=== PATIENT | female | born 1945 | race Two or more races ===

== ENCOUNTER 2021-02-16 15:47 | Inpatient (IN) | payer OTHER, MEDICAID ==
[~2021-02-16] VITALS: Ht 152.4 cm; Wt 49.7 kg
[2021-02-16 16:50] LABS: Basophils # (auto) 0 10 ^3/uL (0-0.2); Basophils % (auto) 0.5 % (0.0-2.0); Eosinophils # (auto) 0 10 ^3/uL (0-0.8); Hematocrit 44.8 % (36.0-46.0); Lymphocytes # (auto) 2.2 10 ^3/uL (0.4-5.4); Lymphocytes % (auto) 24.8 % (10.0-50.0); Mean Corpuscular Hemoglobin 30.1 pg (28.0-32.0); Mean Corpuscular Hgb Conc. 33.5 g/dL (32.0-36.0); Mean Corpuscular Volume 89.9 fL (80.0-100.0); Monocytes # (auto) 0.7 10 ^3/uL (0-1.3); Monocytes % (auto) 7.5 % (0.0-12.0); Neutrophils # (auto) 5.9 10 ^3/uL (1.6-8.6); Neutrophils % (auto) 67.2 % (37.0-80.0); Nucleated Red Blood Cells % 0.1 %; Red Blood Cells 4.98 10^6/uL (4.0-5.20); Red Cell Distribution Width 13.9 % (11.8-14.3); White Blood Cell 8.8 10^3/uL (4.4-10.8)
[2021-02-16 18:12] LABS: Alanine Aminotransferase 33 U/L (13-56); Albumin 3.2 g/dL (3.4-5.0); Anion Gap 13 (5-15); Aspartate Aminotransferase 31 U/L (15-37); BUN/Creatinine Ratio 23.1; Blood Urea Nitrogen 24 mg/dL (7-18); Calcium 8.8 mg/dL (8.5-10.1); Carbon Dioxide 19 mmol/L (21-32); Chloride 107 mmol/L (98-107); GFR African American 66 mL/min; GFR Non-African American 55 mL/min; Glucose 232 mg/dL (74-106); Potassium 4.2 mmol/L (3.5-5.1); Sodium 139 mmol/L (136-145)
[2021-02-16 18:17] LABS: Alkaline Phosphatase 76 U/L (45-117); Bilirubin, Total 0.4 mg/dL (0.2-1.0); Total Protein 8.1 g/dL (6.4-8.2)
[2021-02-16] MEDS ORDERED: NITROGLYCERIN 0.4 MG SL TAB SL PRN (21:00)
[2021-02-16] MEDS ORDERED: ONDANSETRON HCL 4 MG/2 ML VIAL IV PRN (21:00)
[2021-02-16] MEDS ORDERED: ACETAMINOPHEN 325 MG TAB PO PRN (21:00)
[2021-02-16] MEDS ORDERED: ACETAMINOPHEN 500 MG TAB PO PRN (21:00)
[2021-02-16] MEDS ORDERED: MORPHINE SULFATE INJECTION 2 MG/ML SYRG IV PRN (21:00)
[2021-02-16] MEDS: ALBUTEROL SULF HFA 90MCG INH 200DOSE IN PRN (22:30)
[2021-02-17 02:47] LABS: Urine Bacteria NONE SEEN /hpf (None Seen); Urine Blood Negative /uL (Negative); Urine Mucus FEW (None Seen); Urine Specific Gravity 1.028 (1.001-1.035); Urine WBC 2 /hpf (0 - 5); Urine WBC Clumps PRESENT /hpf (None Seen)
[2021-02-17 03:20] VITALS: BP 124/69
[2021-02-17 05:42] LABS: Basophils # (auto) 0 10 ^3/uL (0-0.2); Basophils % (auto) 0.2 % (0.0-2.0); Eosinophils # (auto) 0 10 ^3/uL (0-0.8); Hematocrit 45.3 % (36.0-46.0); Hemoglobin 15.3 g/dL (12.2-16.2); Lymphocytes % (auto) 25.3 % (10.0-50.0); Mean Corpuscular Hemoglobin 30.7 pg (28.0-32.0); Mean Corpuscular Hgb Conc. 33.8 g/dL (32.0-36.0); Mean Corpuscular Volume 90.9 fL (80.0-100.0); Monocytes # (auto) 0.8 10 ^3/uL (0-1.3); Monocytes % (auto) 10.5 % (0.0-12.0); Neutrophils # (auto) 5.1 10 ^3/uL (1.6-8.6); Nucleated Red Blood Cells % 0.1 %; Red Blood Cells 4.98 10^6/uL (4.0-5.20); Red Cell Distribution Width 13.6 % (11.8-14.3)
[2021-02-17 05:50] LABS: Potassium 4.3 mmol/L (3.5-5.1)
[2021-02-17] MEDS: ALBUTEROL SULF HFA 90MCG INH 200DOSE IN PRN ×2 (06:05→19:37)
[2021-02-17 06:16] LABS: Albumin 3.4 g/dL (3.4-5.0); BUN/Creatinine Ratio 26.7; Bilirubin, Total 0.4 mg/dL (0.2-1.0); Calcium 9.1 mg/dL (8.5-10.1); Total Protein 8.2 g/dL (6.4-8.2)
[2021-02-17] MEDS: cefTRIAXone 1GM/50ML D5W 50 ML IV SCH (09:55)
[2021-02-17] MEDS ORDERED: PANTOPRAZOLE 40 MG TAB PO SCH (10:00)
[2021-02-17] MEDS: CHOLECALCIFEROL (VITD3) 2,000 UNIT CAP/TAB PO SCH (10:17)
[2021-02-17] MEDS: ENOXAPARIN SOD 40 MG/0.4 ML SYRINGE SC SCH (10:17)
[2021-02-17] MEDS: DexAMETHasone SOD PHOS 10MG/1ML VIAL INJ IV SCH (10:17)
[2021-02-17] MEDS: ZINC SULFATE 220mg CAP or TAB PO SCH (10:17)
[2021-02-17] MEDS: ASCORBIC ACID 1,000 MG TAB PO SCH (10:17)
[2021-02-17] MEDS: AZITHROMYCIN 500MG/ 250ML 250 ML IV SCH (12:03)
[2021-02-18] MEDS: cefTRIAXone 1GM/50ML D5W 50 ML IV SCH (08:53)
[2021-02-18] MEDS: ZINC SULFATE 220mg CAP or TAB PO SCH (10:37)
[2021-02-18] MEDS: AZITHROMYCIN 500MG/ 250ML 250 ML IV SCH (10:37)
[2021-02-18] MEDS: CHOLECALCIFEROL (VITD3) 2,000 UNIT CAP/TAB PO SCH (10:38)
[2021-02-18] MEDS: ENOXAPARIN SOD 40 MG/0.4 ML SYRINGE SC SCH (10:38)
[2021-02-18] MEDS: ASCORBIC ACID 1,000 MG TAB PO SCH (10:38)
[2021-02-18] MEDS: DexAMETHasone SOD PHOS 10MG/1ML VIAL INJ IV SCH (10:38)
[2021-02-18 10:51] LABS: Potassium 4.7 mmol/L (3.5-5.1)
[2021-02-18 10:56] LABS: BUN/Creatinine Ratio 30.7; Calcium 9.3 mg/dL (8.5-10.1)
[2021-02-18] MEDS: SODIUM BICARBONATE 50ML VIAL 150 ML in D5W 5% 1,000 ML IV SCH (14:08)
[2021-02-18] MEDS: InsuLIN REG 1unit/0.01ml Soln (100units/ml) SC SCH ×2 (17:21→21:45)
[2021-02-18] MEDS: ACCU-CHEK COMFORT CURVE STRIP VI SCH ×2 (17:22→21:45)
[2021-02-18 22:00] VITALS: BP 113/60
[2021-02-18] MEDS ORDERED: AMIODARONE HCL 150 MG in D5W 5% 100 ML IV ONE (23:30)
[2021-02-18] MEDS ORDERED: AMIODARONE 450mg/250ml AE 250 ML IV SCH (23:45)
[2021-02-18] MEDS ORDERED: AMIODARONE HCL (50 MG/ ML) 3 ML VIAL IV ONE (23:57)
[2021-02-19 01:00] VITALS: BP 113/60
[2021-02-19] MEDS ORDERED: SODIUM BICARBONATE 8.4 % INJ 50ML VIAL IV ONE ×3 (01:28→01:37)
[2021-02-19] MEDS: SODIUM BICARBONATE 50ML VIAL 150 ML in D5W 5% 1,000 ML IV SCH (02:01)
[2021-02-19 05:00] VITALS: BP 128/92
[2021-02-19] MEDS ORDERED: CANA100T PO (05:14)
[2021-02-19] MEDS ORDERED: METF-370 PO (05:14)
[2021-02-19] MEDS ORDERED: GLIP10TA9 PO (05:14)
[2021-02-19] MEDS ORDERED: LOSA-39 PO (05:14)
[2021-02-19] MEDS: AMIODARONE 450mg/250ml AE 250 ML IV SCH ×2 (06:43→11:48)
[2021-02-19 06:47] LABS: Calcium 9.4 mg/dL (8.5-10.1); Potassium 3.8 mmol/L (3.5-5.1)
[2021-02-19] MEDS: ACCU-CHEK COMFORT CURVE STRIP VI SCH ×4 (07:05→22:00)
[2021-02-19] MEDS: InsuLIN REG 1unit/0.01ml Soln (100units/ml) SC SCH ×4 (07:07→22:30)
[2021-02-19 08:44] VITALS: BP 143/62
[2021-02-19] MEDS: CHOLECALCIFEROL (VITD3) 2,000 UNIT CAP/TAB PO SCH ×2 (10:00→10:29)
[2021-02-19] MEDS: ZINC SULFATE 220mg CAP or TAB PO SCH ×2 (10:00→10:29)
[2021-02-19] MEDS: ASCORBIC ACID 1,000 MG TAB PO SCH ×2 (10:00→10:29)
[2021-02-19] MEDS: AZITHROMYCIN 500MG/ 250ML 250 ML IV SCH (10:03)
[2021-02-19] MEDS: cefTRIAXone 1GM/50ML D5W 50 ML IV SCH (10:04)
[2021-02-19] MEDS: DexAMETHasone SOD PHOS 10MG/1ML VIAL INJ IV SCH (10:04)
[2021-02-19] MEDS: ENOXAPARIN SOD 40 MG/0.4 ML SYRINGE SC SCH (10:05)
[2021-02-19] MEDS: INSULIN LANTUS (GLARGINE) 1 /0.01ml (100units/ml) SC SCH ×2 (10:16→22:30)
[2021-02-19] MEDS: MORPHINE SULFATE INJECTION 2 MG/ML SYRG IV PRN (11:49)
[2021-02-19] MEDS ORDERED: ACETAMINOPHEN 650 MG RECT SUPP PR PRN (12:00)
[2021-02-19 12:55] VITALS: BP 144/66
[2021-02-19] MEDS: LACTATED RINGER'S 1,000 ML IV SCH (15:14)
[2021-02-19 17:00] VITALS: BP 130/65
[2021-02-19 22:00] VITALS: BP 115/70
[2021-02-20] MEDS: LACTATED RINGER'S 1,000 ML IV SCH ×2 (02:10→15:40)
[2021-02-20 04:30] VITALS: BP 121/72
[2021-02-20] MEDS: ACCU-CHEK COMFORT CURVE STRIP VI SCH ×4 (07:06→22:19)
[2021-02-20] MEDS: INSULIN LANTUS (GLARGINE) 1 /0.01ml (100units/ml) SC SCH ×2 (07:08→22:21)
[2021-02-20] MEDS: InsuLIN REG 1unit/0.01ml Soln (100units/ml) SC SCH ×4 (07:08→22:00)
[2021-02-20 08:01] LABS: Basophils # (auto) 0.1 10 ^3/uL (0-0.2); Basophils % (auto) 0.4 % (0.0-2.0); Eosinophils # (auto) 0 10 ^3/uL (0-0.8); Hematocrit 40.8 % (36.0-46.0); Hemoglobin 13.8 g/dL (12.2-16.2); Lymphocytes # (auto) 1.3 10 ^3/uL (0.4-5.4); Lymphocytes % (auto) 10.9 % (10.0-50.0); Mean Corpuscular Hemoglobin 29.7 pg (28.0-32.0); Mean Corpuscular Hgb Conc. 33.8 g/dL (32.0-36.0); Mean Corpuscular Volume 88.1 fL (80.0-100.0); Monocytes # (auto) 0.8 10 ^3/uL (0-1.3); Monocytes % (auto) 6.4 % (0.0-12.0); Neutrophils # (auto) 10.2 10 ^3/uL (1.6-8.6); Neutrophils % (auto) 82.3 % (37.0-80.0); Red Blood Cells 4.63 10^6/uL (4.0-5.20); Red Cell Distribution Width 13.2 % (11.8-14.3); White Blood Cell 12.4 10^3/uL (4.4-10.8)
[2021-02-20 08:15] LABS: Albumin 2.6 g/dL (3.4-5.0); Calcium 8.9 mg/dL (8.5-10.1); Potassium 3.2 mmol/L (3.5-5.1)
[2021-02-20 08:19] LABS: BUN/Creatinine Ratio 35.4; Bilirubin, Total 0.5 mg/dL (0.2-1.0)
[2021-02-20] MEDS: ZINC SULFATE 220mg CAP or TAB PO SCH (08:46)
[2021-02-20] MEDS: cefTRIAXone 1GM/50ML D5W 50 ML IV SCH (08:46)
[2021-02-20] MEDS: ASCORBIC ACID 1,000 MG TAB PO SCH (08:47)
[2021-02-20] MEDS: AMIODARONE HCL 200 MG TAB PO SCH ×2 (08:47→22:19)
[2021-02-20] MEDS: CHOLECALCIFEROL (VITD3) 2,000 UNIT CAP/TAB PO SCH (08:48)
[2021-02-20] MEDS: DexAMETHasone SOD PHOS 10MG/1ML VIAL INJ IV SCH (08:50)
[2021-02-20 09:00] VITALS: BP 147/63
[2021-02-20] MEDS: AZITHROMYCIN 500MG/ 250ML 250 ML IV SCH (11:06)
[2021-02-20] MEDS: POTASSIUM CHL 20MEQ/100ML 100 ML IV SCH ×2 (12:00→13:20)
[2021-02-20 13:00] VITALS: BP 139/55
[2021-02-20 17:00] VITALS: BP 131/54
[2021-02-20] MEDS: APIXABAN 5 MG TAB PO SCH (17:44)
[2021-02-20] MEDS ORDERED: POTASSIUM CHL 20MEQ/100ML 100 ML IV SCH (18:15)
[2021-02-20] MEDS: SOD CHL 0.45% 1,000 ML IV SCH (20:12)
[2021-02-20 22:00] VITALS: BP 162/80
[2021-02-21] VITALS (7 sets, daily range): BP systolic 132–142; BP diastolic 60–70
[2021-02-21] MEDS: SOD CHL 0.45% 1,000 ML IV SCH ×2 (05:45→11:27)
[2021-02-21] MEDS: InsuLIN REG 1unit/0.01ml Soln (100units/ml) SC SCH ×4 (06:30→22:36)
[2021-02-21] MEDS: INSULIN LANTUS (GLARGINE) 1 /0.01ml (100units/ml) SC SCH ×2 (06:30→22:37)
[2021-02-21] MEDS: ACCU-CHEK COMFORT CURVE STRIP VI SCH ×4 (06:30→22:37)
[2021-02-21 06:40] LABS: Calcium 8.5 mg/dL (8.5-10.1); Potassium 3.4 mmol/L (3.5-5.1)
[2021-02-21 06:48] LABS: BUN/Creatinine Ratio 43.5
[2021-02-21] MEDS: ALBUTEROL SULF HFA 90MCG INH 200DOSE IN PRN (07:58)
[2021-02-21] MEDS: APIXABAN 5 MG TAB PO SCH ×2 (08:17→17:57)
[2021-02-21] MEDS: cefTRIAXone 1GM/50ML D5W 50 ML IV SCH (08:57)
[2021-02-21] MEDS: DexAMETHasone SOD PHOS 10MG/1ML VIAL INJ IV SCH (10:11)
[2021-02-21] MEDS: AZITHROMYCIN 500MG/ 250ML 250 ML IV SCH (10:11)
[2021-02-21] MEDS: ASCORBIC ACID 1,000 MG TAB PO SCH (10:12)
[2021-02-21] MEDS: CHOLECALCIFEROL (VITD3) 2,000 UNIT CAP/TAB PO SCH (10:12)
[2021-02-21] MEDS: AMIODARONE HCL 200 MG TAB PO SCH ×2 (10:12→22:36)
[2021-02-21] MEDS: ZINC SULFATE 220mg CAP or TAB PO SCH (10:12)
[2021-02-21] MEDS ORDERED: POTASSIUM EFFERVESENT TAB 25 MEQ GT ONE (14:15)
[2021-02-22] MEDS: SOD CHL 0.45% 1,000 ML IV SCH ×3 (01:45→22:04)
[2021-02-22 05:26] VITALS: BP 131/64
[2021-02-22] MEDS: ACCU-CHEK COMFORT CURVE STRIP VI SCH ×4 (06:34→22:14)
[2021-02-22] MEDS: InsuLIN REG 1unit/0.01ml Soln (100units/ml) SC SCH ×4 (06:35→22:33)
[2021-02-22] MEDS: ALBUTEROL SULF HFA 90MCG INH 200DOSE IN PRN (06:48)
[2021-02-22] MEDS: INSULIN LANTUS (GLARGINE) 1 /0.01ml (100units/ml) SC SCH ×2 (07:00→22:33)
[2021-02-22] MEDS: cefTRIAXone 1GM/50ML D5W 50 ML IV SCH (08:35)
[2021-02-22] MEDS: APIXABAN 5 MG TAB PO SCH ×2 (08:35→18:27)
[2021-02-22 09:00] VITALS: BP 126/52
[2021-02-22] MEDS: CHOLECALCIFEROL (VITD3) 2,000 UNIT CAP/TAB PO SCH (10:20)
[2021-02-22] MEDS: AMIODARONE HCL 200 MG TAB PO SCH ×2 (10:20→22:33)
[2021-02-22] MEDS: ZINC SULFATE 220mg CAP or TAB PO SCH (10:20)
[2021-02-22] MEDS: ASCORBIC ACID 1,000 MG TAB PO SCH (10:20)
[2021-02-22] MEDS: DexAMETHasone SOD PHOS 10MG/1ML VIAL INJ IV SCH (10:20)
[2021-02-22 13:00] VITALS: BP 138/63
[2021-02-22] MEDS ORDERED: LORazepam 2MG/ML-1ML VIAL IV PRN (17:00)
[2021-02-22 22:16] VITALS: BP 109/72
[2021-02-23 05:11] VITALS: BP 139/70
[2021-02-23] MEDS: InsuLIN REG 1unit/0.01ml Soln (100units/ml) SC SCH ×4 (06:37→22:04)
[2021-02-23] MEDS: ACCU-CHEK COMFORT CURVE STRIP VI SCH ×4 (06:37→22:03)
[2021-02-23] MEDS: INSULIN LANTUS (GLARGINE) 1 /0.01ml (100units/ml) SC SCH ×2 (06:37→22:04)
[2021-02-23] MEDS: APIXABAN 5 MG TAB PO SCH ×3 (08:00→17:33)
[2021-02-23 09:00] VITALS: BP 140/68
[2021-02-23] MEDS: cefTRIAXone 1GM/50ML D5W 50 ML IV SCH (09:31)
[2021-02-23] MEDS: SOD CHL 0.45% 1,000 ML IV SCH ×2 (09:31→17:33)
[2021-02-23] MEDS: ZINC SULFATE 220mg CAP or TAB PO SCH ×2 (09:31→09:43)
[2021-02-23] MEDS: DexAMETHasone SOD PHOS 10MG/1ML VIAL INJ IV SCH (09:31)
[2021-02-23] MEDS: CHOLECALCIFEROL (VITD3) 2,000 UNIT CAP/TAB PO SCH ×2 (09:32→09:43)
[2021-02-23] MEDS: AMIODARONE HCL 200 MG TAB PO SCH ×3 (09:32→22:03)
[2021-02-23] MEDS: ASCORBIC ACID 1,000 MG TAB PO SCH ×2 (09:32→09:43)
[2021-02-23 13:00] VITALS: BP 141/71
[2021-02-23 17:00] VITALS: BP 152/66
[2021-02-23] MEDS: ALBUTEROL SULF HFA 90MCG INH 200DOSE IN PRN (21:56)
[2021-02-23 22:00] VITALS: BP 136/66
[2021-02-24] MEDS: SOD CHL 0.45% 1,000 ML IV SCH (03:45)
[2021-02-24 05:00] VITALS: BP 137/68
[2021-02-24] MEDS: ACCU-CHEK COMFORT CURVE STRIP VI SCH ×4 (06:06→22:26)
[2021-02-24] MEDS: InsuLIN REG 1unit/0.01ml Soln (100units/ml) SC SCH ×4 (06:19→22:28)
[2021-02-24] MEDS: INSULIN LANTUS (GLARGINE) 1 /0.01ml (100units/ml) SC SCH ×2 (06:26→22:27)
[2021-02-24] MEDS: ALBUTEROL SULF HFA 90MCG INH 200DOSE IN PRN ×2 (06:48→21:26)
[2021-02-24] MEDS: ZINC SULFATE 220mg CAP or TAB PO SCH (08:16)
[2021-02-24] MEDS: DexAMETHasone SOD PHOS 10MG/1ML VIAL INJ IV SCH (08:16)
[2021-02-24] MEDS: APIXABAN 5 MG TAB PO SCH ×2 (08:16→17:21)
[2021-02-24] MEDS: AMIODARONE HCL 200 MG TAB PO SCH ×2 (08:17→22:26)
[2021-02-24] MEDS: CHOLECALCIFEROL (VITD3) 2,000 UNIT CAP/TAB PO SCH (08:17)
[2021-02-24] MEDS: ASCORBIC ACID 1,000 MG TAB PO SCH (08:17)
[2021-02-24 09:00] VITALS: BP 131/64
[2021-02-24] MEDS ORDERED: IOHEXOL 350 MG/ML 100ML IJ ONE (10:31)
[2021-02-24 11:38] LABS: Hematocrit 38.4 % (36.0-46.0); Hemoglobin 12.7 g/dL (12.2-16.2); Mean Corpuscular Hemoglobin 29.1 pg (28.0-32.0); Mean Corpuscular Volume 88.2 fL (80.0-100.0); Red Blood Cells 4.36 10^6/uL (4.0-5.20); Red Cell Distribution Width 12.8 % (11.8-14.3); White Blood Cell 16.1 10^3/uL (4.4-10.8)
[2021-02-24 11:40] LABS: Basophils % (manual) 0 (0.0-2.0); Blast Cells 0; Eosinophils % (manual) 0 (0-7); Metamyelocytes % 0; Promyelocytes % 0; Reactive Lymphocytes 0
[2021-02-24 12:20] LABS: Band Neutrophils % (manual) 1; Lymphocytes % (manual) 3 (10.0-50.0); Monocytes % (manual) 6 (0-12); Myelocytes % 1
[2021-02-24 13:00] VITALS: BP 137/61
[2021-02-24 13:34] LABS: Calcium 8.5 mg/dL (8.5-10.1); Potassium 3.7 mmol/L (3.5-5.1)
[2021-02-24] MEDS: AMOXICILLIN/CLAVUL 875 MG TAB PO SCH ×2 (16:28→22:26)
[2021-02-24 17:02] VITALS: BP 105/63
[2021-02-24 22:00] VITALS: BP 140/64
[2021-02-25 05:00] VITALS: BP 135/67
[2021-02-25] MEDS: ALBUTEROL SULF HFA 90MCG INH 200DOSE IN PRN (06:35)
[2021-02-25] MEDS: INSULIN LANTUS (GLARGINE) 1 /0.01ml (100units/ml) SC SCH ×2 (06:37→23:09)
[2021-02-25] MEDS: InsuLIN REG 1unit/0.01ml Soln (100units/ml) SC SCH ×4 (06:37→23:25)
[2021-02-25] MEDS: ACCU-CHEK COMFORT CURVE STRIP VI SCH ×4 (06:38→23:08)
[2021-02-25 06:57] LABS: Calcium 8.3 mg/dL (8.5-10.1); Potassium 3.2 mmol/L (3.5-5.1)
[2021-02-25 07:00] LABS: BUN/Creatinine Ratio 52.5
[2021-02-25 08:52] VITALS: BP 159/64
[2021-02-25] MEDS ORDERED: POTASSIUM CHL 20 Meq TABLET PO ONE (09:00)
[2021-02-25] MEDS: DexAMETHasone SOD PHOS 10MG/1ML VIAL INJ IV SCH (09:33)
[2021-02-25] MEDS: APIXABAN 5 MG TAB PO SCH ×2 (09:33→17:48)
[2021-02-25] MEDS: ZINC SULFATE 220mg CAP or TAB PO SCH (09:33)
[2021-02-25] MEDS: AMOXICILLIN/CLAVUL 875 MG TAB PO SCH (09:34)
[2021-02-25] MEDS: ASCORBIC ACID 1,000 MG TAB PO SCH (09:34)
[2021-02-25] MEDS: MORPHINE SULFATE INJECTION 2 MG/ML SYRG IV PRN ×3 (09:34→23:27)
[2021-02-25] MEDS: CHOLECALCIFEROL (VITD3) 2,000 UNIT CAP/TAB PO SCH (09:34)
[2021-02-25] MEDS: AMIODARONE HCL 200 MG TAB PO SCH ×2 (09:34→23:08)
[2021-02-25] MEDS ORDERED: FUROSEMIDE 40 MG/4 ML VIAL IV SCH (10:00)
[2021-02-25 13:00] VITALS: BP 135/68
[2021-02-25 17:00] VITALS: BP 115/68
[2021-02-25] MEDS: PIPERACILLIN-TAZOB 3.375GM 100 ML IV SCH ×2 (17:48→23:26)
[2021-02-25] MEDS: FUROSEMIDE 40 MG/4 ML VIAL IV SCH (17:50)
[2021-02-25] MEDS: ALBUTEROL SULF HFA 90MCG INH 200DOSE IN SCH (21:46)
[2021-02-25 22:00] VITALS: BP 113/60
[2021-02-25] MEDS: FAMOTIDINE 20 MG TAB PO SCH (23:08)
[2021-02-26 05:00] VITALS: BP 117/67
[2021-02-26] MEDS: PIPERACILLIN-TAZOB 3.375GM 100 ML IV SCH ×5 (07:10→22:40)
[2021-02-26] MEDS: FUROSEMIDE 40 MG/4 ML VIAL IV SCH ×2 (07:11→17:53)
[2021-02-26] MEDS: ACCU-CHEK COMFORT CURVE STRIP VI SCH ×4 (07:11→22:40)
[2021-02-26] MEDS: INSULIN LANTUS (GLARGINE) 1 /0.01ml (100units/ml) SC SCH ×2 (07:12→22:41)
[2021-02-26] MEDS: InsuLIN REG 1unit/0.01ml Soln (100units/ml) SC SCH ×4 (07:12→22:40)
[2021-02-26 07:16] LABS: Hematocrit 43.8 % (36.0-46.0); Hemoglobin 14.4 g/dL (12.2-16.2); Mean Corpuscular Hemoglobin 29.1 pg (28.0-32.0); Mean Corpuscular Hgb Conc. 32.9 g/dL (32.0-36.0); Mean Corpuscular Volume 88.3 fL (80.0-100.0); Red Blood Cells 4.97 10^6/uL (4.0-5.20); Red Cell Distribution Width 13.1 % (11.8-14.3); White Blood Cell 13.5 10^3/uL (4.4-10.8)
[2021-02-26 07:32] LABS: Basophils % (manual) 0 (0.0-2.0); Blast Cells 0; Eosinophils % (manual) 0 (0-7); Metamyelocytes % 0; Myelocytes % 0; Promyelocytes % 0; Reactive Lymphocytes 0
[2021-02-26 07:34] LABS: BUN/Creatinine Ratio 37.7; Calcium 8.6 mg/dL (8.5-10.1); Magnesium 2.6 mg/dL (1.6-2.6); Potassium 3.8 mmol/L (3.5-5.1)
[2021-02-26 09:00] VITALS: BP 119/58
[2021-02-26 09:02] LABS: Band Neutrophils % (manual) 1; Lymphocytes % (manual) 6 (10.0-50.0); Monocytes % (manual) 7 (0-12)
[2021-02-26] MEDS: ALBUTEROL SULF HFA 90MCG INH 200DOSE IN SCH ×3 (09:37→19:35)
[2021-02-26] MEDS: APIXABAN 5 MG TAB PO SCH ×2 (10:10→17:53)
[2021-02-26] MEDS: FAMOTIDINE 20 MG TAB PO SCH (10:10)
[2021-02-26] MEDS: DexAMETHasone SOD PHOS 10MG/1ML VIAL INJ IV SCH (10:10)
[2021-02-26] MEDS: AMIODARONE HCL 200 MG TAB PO SCH ×2 (10:10→22:39)
[2021-02-26] MEDS: CHOLECALCIFEROL (VITD3) 2,000 UNIT CAP/TAB PO SCH (10:11)
[2021-02-26 13:00] VITALS: BP 124/54
[2021-02-26 17:00] VITALS: BP 102/59
[2021-02-26] MEDS ORDERED: HALOPERIDOL LACTATE 5 MG/ML INJ VIAL IM PRN (18:30)
[2021-02-26 21:48] VITALS: BP 118/63
[2021-02-26] MEDS: MORPHINE SULFATE INJECTION 2 MG/ML SYRG IV PRN (22:42)
[2021-02-27 05:00] VITALS: BP 113/61
[2021-02-27] MEDS: FUROSEMIDE 40 MG/4 ML VIAL IV SCH ×2 (06:33→18:29)
[2021-02-27] MEDS: InsuLIN REG 1unit/0.01ml Soln (100units/ml) SC SCH ×4 (06:34→21:35)
[2021-02-27] MEDS: ACCU-CHEK COMFORT CURVE STRIP VI SCH ×4 (06:34→21:43)
[2021-02-27] MEDS: PIPERACILLIN-TAZOB 3.375GM 100 ML IV SCH ×4 (06:34→23:42)
[2021-02-27] MEDS: INSULIN LANTUS (GLARGINE) 1 /0.01ml (100units/ml) SC SCH ×2 (06:35→21:35)
[2021-02-27] MEDS: ALBUTEROL SULF HFA 90MCG INH 200DOSE IN SCH ×2 (06:50→14:00)
[2021-02-27] MEDS: APIXABAN 5 MG TAB PO SCH ×2 (08:15→18:29)
[2021-02-27 09:00] VITALS: BP 108/46
[2021-02-27] MEDS: FAMOTIDINE 20 MG TAB PO SCH (10:39)
[2021-02-27] MEDS: DexAMETHasone SOD PHOS 10MG/1ML VIAL INJ IV SCH (10:39)
[2021-02-27] MEDS: CHOLECALCIFEROL (VITD3) 2,000 UNIT CAP/TAB PO SCH (10:41)
[2021-02-27] MEDS: AMIODARONE HCL 200 MG TAB PO SCH ×2 (10:42→21:09)
[2021-02-27 11:51] LABS: Basophils # (auto) 0 10 ^3/uL (0-0.2); Basophils % (auto) 0.2 % (0.0-2.0); Eosinophils # (auto) 0 10 ^3/uL (0-0.8); Hematocrit 46.5 % (36.0-46.0); Hemoglobin 15.6 g/dL (12.2-16.2); Lymphocytes # (auto) 1.2 10 ^3/uL (0.4-5.4); Lymphocytes % (auto) 7.4 % (10.0-50.0); Mean Corpuscular Hemoglobin 29.7 pg (28.0-32.0); Mean Corpuscular Hgb Conc. 33.6 g/dL (32.0-36.0); Mean Corpuscular Volume 88.4 fL (80.0-100.0); Monocytes # (auto) 0.8 10 ^3/uL (0-1.3); Monocytes % (auto) 4.6 % (0.0-12.0); Neutrophils # (auto) 14.5 10 ^3/uL (1.6-8.6); Neutrophils % (auto) 87.8 % (37.0-80.0); Red Blood Cells 5.26 10^6/uL (4.0-5.20); Red Cell Distribution Width 12.9 % (11.8-14.3); White Blood Cell 16.5 10^3/uL (4.4-10.8)
[2021-02-27 12:19] LABS: BUN/Creatinine Ratio 32.7; Calcium 8.6 mg/dL (8.5-10.1); Magnesium 2.7 mg/dL (1.6-2.6)
[2021-02-27 12:43] LABS: Potassium 2.8 mmol/L (3.5-5.1)
[2021-02-27 13:00] VITALS: BP 115/52
[2021-02-27] MEDS ORDERED: POTASSIUM CHL 20 Meq TABLET PO ONE (13:15)
[2021-02-27] MEDS: POTASSIUM CHL 20MEQ/100ML 100 ML IV SCH ×3 (14:30→19:30)
[2021-02-27 16:33] VITALS: BP 113/59
[2021-02-27] MEDS: LACTULOSE 20Gm/30ML SOLN PO SCH (21:08)
[2021-02-27] MEDS: SENNA 8.6 MG TAB PO SCH (21:08)
[2021-02-27] MEDS: DOCUSATE SOD 100 MG CAP PO SCH (21:09)
[2021-02-27] MEDS: MORPHINE SULFATE INJECTION 2 MG/ML SYRG IV PRN (21:44)
[2021-02-28 05:00] VITALS: BP 126/69
[2021-02-28] MEDS: PIPERACILLIN-TAZOB 3.375GM 100 ML IV SCH ×3 (05:16→17:17)
[2021-02-28] MEDS: FUROSEMIDE 40 MG/4 ML VIAL IV SCH ×2 (05:16→17:25)
[2021-02-28] MEDS: ACCU-CHEK COMFORT CURVE STRIP VI SCH ×4 (06:14→22:38)
[2021-02-28] MEDS: InsuLIN REG 1unit/0.01ml Soln (100units/ml) SC SCH ×4 (06:15→22:37)
[2021-02-28] MEDS: INSULIN LANTUS (GLARGINE) 1 /0.01ml (100units/ml) SC SCH ×2 (06:15→22:37)
[2021-02-28 06:20] LABS: Basophils # (auto) 0 10 ^3/uL (0-0.2); Basophils % (auto) 0.2 % (0.0-2.0); Eosinophils # (auto) 0 10 ^3/uL (0-0.8); Hematocrit 45.8 % (36.0-46.0); Hemoglobin 15.4 g/dL (12.2-16.2); Lymphocytes # (auto) 0.9 10 ^3/uL (0.4-5.4); Lymphocytes % (auto) 4.8 % (10.0-50.0); Mean Corpuscular Hemoglobin 29.6 pg (28.0-32.0); Mean Corpuscular Hgb Conc. 33.6 g/dL (32.0-36.0); Mean Corpuscular Volume 88.3 fL (80.0-100.0); Monocytes # (auto) 0.6 10 ^3/uL (0-1.3); Monocytes % (auto) 3.2 % (0.0-12.0); Neutrophils # (auto) 16.6 10 ^3/uL (1.6-8.6); Neutrophils % (auto) 91.8 % (37.0-80.0); Nucleated Red Blood Cells % 0.1 %; Red Blood Cells 5.19 10^6/uL (4.0-5.20); Red Cell Distribution Width 13.1 % (11.8-14.3); White Blood Cell 18.1 10^3/uL (4.4-10.8)
[2021-02-28 06:32] LABS: Calcium 8.7 mg/dL (8.5-10.1); Magnesium 2.8 mg/dL (1.6-2.6); Potassium 3.1 mmol/L (3.5-5.1)
[2021-02-28 06:35] LABS: BUN/Creatinine Ratio 29.6
[2021-02-28] MEDS: ALBUTEROL SULF HFA 90MCG INH 200DOSE IN SCH ×3 (06:41→22:00)
[2021-02-28 09:00] VITALS: BP 133/68
[2021-02-28] MEDS: AMIODARONE HCL 200 MG TAB PO SCH ×3 (10:32→22:59)
[2021-02-28] MEDS: LACTULOSE 20Gm/30ML SOLN PO SCH ×3 (10:32→22:58)
[2021-02-28] MEDS: APIXABAN 5 MG TAB PO SCH ×2 (10:35→17:18)
[2021-02-28] MEDS: CHOLECALCIFEROL (VITD3) 2,000 UNIT CAP/TAB PO SCH (10:35)
[2021-02-28] MEDS: DOCUSATE SOD 100 MG CAP PO SCH ×3 (10:35→22:58)
[2021-02-28] MEDS: FAMOTIDINE 20 MG TAB PO SCH (10:35)
[2021-02-28] MEDS: MORPHINE SULFATE INJECTION 2 MG/ML SYRG IV PRN (10:52)
[2021-02-28] MEDS: DexAMETHasone SOD PHOS 10MG/1ML VIAL INJ IV SCH (11:30)
[2021-02-28] MEDS: POTASSIUM CHL 20MEQ/100ML 100 ML IV SCH ×2 (14:14→16:00)
[2021-02-28 17:00] VITALS: BP 125/59
[2021-02-28 22:00] VITALS: BP 116/65
[2021-02-28] MEDS: SENNA 8.6 MG TAB PO SCH ×2 (22:33→22:59)
[2021-03-01] MEDS: PIPERACILLIN-TAZOB 3.375GM 100 ML IV SCH ×4 (04:30→23:41)
[2021-03-01 05:00] VITALS: BP 135/65
[2021-03-01] MEDS: FUROSEMIDE 40 MG/4 ML VIAL IV SCH ×2 (05:25→17:42)
[2021-03-01] MEDS: InsuLIN REG 1unit/0.01ml Soln (100units/ml) SC SCH ×4 (06:19→21:36)
[2021-03-01] MEDS: ACCU-CHEK COMFORT CURVE STRIP VI SCH ×4 (06:20→21:55)
[2021-03-01] MEDS: INSULIN LANTUS (GLARGINE) 1 /0.01ml (100units/ml) SC SCH ×2 (06:20→21:52)
[2021-03-01 07:00] LABS: Hematocrit 47.6 % (36.0-46.0); Hemoglobin 15.9 g/dL (12.2-16.2); Mean Corpuscular Hemoglobin 29.9 pg (28.0-32.0); Mean Corpuscular Hgb Conc. 33.4 g/dL (32.0-36.0); Mean Corpuscular Volume 89.5 fL (80.0-100.0); Red Blood Cells 5.32 10^6/uL (4.0-5.20); Red Cell Distribution Width 13.2 % (11.8-14.3); White Blood Cell 28.1 10^3/uL (4.4-10.8)
[2021-03-01 07:10] LABS: Basophils % (manual) 0 (0.0-2.0); Blast Cells 0; Eosinophils % (manual) 0 (0-7); Metamyelocytes % 0; Myelocytes % 0; Promyelocytes % 0; Reactive Lymphocytes 0
[2021-03-01 07:12] LABS: Calcium 9.2 mg/dL (8.5-10.1); Magnesium 2.9 mg/dL (1.6-2.6); Potassium 3.6 mmol/L (3.5-5.1)
[2021-03-01 07:15] LABS: BUN/Creatinine Ratio 33.3
[2021-03-01] MEDS: APIXABAN 5 MG TAB PO SCH ×2 (08:00→18:00)
[2021-03-01 09:00] VITALS: BP 116/70
[2021-03-01 09:24] LABS: Band Neutrophils % (manual) 3; Lymphocytes % (manual) 2 (10.0-50.0); Monocytes % (manual) 1 (0-12)
[2021-03-01] MEDS: FAMOTIDINE 20 MG TAB PO SCH (10:00)
[2021-03-01] MEDS: CHOLECALCIFEROL (VITD3) 2,000 UNIT CAP/TAB PO SCH (10:00)
[2021-03-01] MEDS: LACTULOSE 20Gm/30ML SOLN PO SCH ×2 (10:30→21:52)
[2021-03-01] MEDS: DOCUSATE SOD 100 MG CAP PO SCH ×3 (10:30→21:53)
[2021-03-01] MEDS: AMIODARONE HCL 200 MG TAB PO SCH ×2 (10:30→21:33)
[2021-03-01] MEDS: DexAMETHasone SOD PHOS 10MG/1ML VIAL INJ IV SCH (10:39)
[2021-03-01] MEDS: POTASSIUM EFFERVESENT TAB 25 MEQ PO SCH (10:39)
[2021-03-01] MEDS: ALBUTEROL SULF HFA 90MCG INH 200DOSE IN SCH ×3 (10:44→21:23)
[2021-03-01] MEDS: MORPHINE SULFATE INJECTION 2 MG/ML SYRG IV PRN (12:17)
[2021-03-01 12:56] VITALS: BP 110/64
[2021-03-01 17:00] VITALS: BP 112/60
[2021-03-01] MEDS: SENNA 8.6 MG TAB PO SCH (21:53)
[2021-03-01 22:00] VITALS: BP 121/63
[2021-03-02] VITALS (11 sets, daily range): BP systolic 84–129; BP diastolic 51–90
[2021-03-02] MEDS: PIPERACILLIN-TAZOB 3.375GM 100 ML IV SCH ×4 (05:20→23:26)
[2021-03-02] MEDS: FUROSEMIDE 40 MG/4 ML VIAL IV SCH ×3 (05:21→23:26)
[2021-03-02] MEDS: InsuLIN REG 1unit/0.01ml Soln (100units/ml) SC SCH ×4 (06:17→21:51)
[2021-03-02] MEDS: INSULIN LANTUS (GLARGINE) 1 /0.01ml (100units/ml) SC SCH ×2 (06:18→21:52)
[2021-03-02] MEDS: ACCU-CHEK COMFORT CURVE STRIP VI SCH ×4 (06:19→21:52)
[2021-03-02] MEDS: ALBUTEROL SULF HFA 90MCG INH 200DOSE IN SCH (06:57)
[2021-03-02 07:14] LABS: Potassium 3.5 mmol/L (3.5-5.1)
[2021-03-02 07:26] LABS: BUN/Creatinine Ratio 31.1; Calcium 9.1 mg/dL (8.5-10.1); Magnesium 3.2 mg/dL (1.6-2.6)
[2021-03-02] MEDS: APIXABAN 5 MG TAB PO SCH ×2 (08:00→18:00)
[2021-03-02 09:47] LABS: Basophils # (auto) 0 10 ^3/uL (0-0.2); Basophils % (auto) 0.1 % (0.0-2.0); Eosinophils # (auto) 0 10 ^3/uL (0-0.8); Eosinophils % (auto) 0.1 % (0.0-7.0); Lymphocytes # (auto) 0.7 10 ^3/uL (0.4-5.4); Lymphocytes % (auto) 2.2 % (10.0-50.0); Monocytes # (auto) 0.7 10 ^3/uL (0-1.3); Monocytes % (auto) 2.3 % (0.0-12.0); Neutrophils % (auto) 95.3 % (37.0-80.0); Red Blood Cells 5.36 10^6/uL (4.0-5.20)
[2021-03-02 09:49] LABS: Hemoglobin 15.7 g/dL (12.2-16.2); Mean Corpuscular Hemoglobin 29.3 pg (28.0-32.0); Mean Corpuscular Hgb Conc. 32.8 g/dL (32.0-36.0); Mean Corpuscular Volume 89.5 fL (80.0-100.0); Neutrophils # (auto) 30.7 10 ^3/uL (1.6-8.6); Red Cell Distribution Width 13.4 % (11.8-14.3)
[2021-03-02 09:56] LABS: White Blood Cell 32.2 10^3/uL (4.4-10.8)
[2021-03-02] MEDS: POTASSIUM EFFERVESENT TAB 25 MEQ PO SCH (10:00)
[2021-03-02] MEDS: CHOLECALCIFEROL (VITD3) 2,000 UNIT CAP/TAB PO SCH (10:00)
[2021-03-02] MEDS: AMIODARONE HCL 200 MG TAB PO SCH (10:00)
[2021-03-02] MEDS: FAMOTIDINE 20 MG TAB PO SCH (10:00)
[2021-03-02] MEDS: LACTULOSE 20Gm/30ML SOLN PO SCH ×2 (10:00→21:07)
[2021-03-02] MEDS ORDERED: AMIODARONE HCL 150 MG in D5W 5% 100 ML IV ONE (19:15)
[2021-03-02] MEDS ORDERED: AMIODARONE 450mg/250ml AE 250 ML IV SCH (19:15)
[2021-03-02] MEDS ORDERED: ADENOSINE 6 MG/2 ML INJ IV ONE (20:15)
[2021-03-02] MEDS: DOCUSATE SOD 100 MG CAP PO SCH (21:08)
[2021-03-02] MEDS: SENNA 8.6 MG TAB PO SCH (21:08)
[2021-03-02] MEDS ORDERED: SODIUM CHLORIDE 0.9% 500 ML IV ONE (21:45)
[2021-03-03] VITALS (19 sets, daily range): BP systolic 84–126; BP diastolic 52–76
[2021-03-03] MEDS: AMIODARONE 450mg/250ml AE 250 ML IV SCH ×2 (03:18→16:57)
[2021-03-03] MEDS ORDERED: SODIUM CHLORIDE 0.9% 500 ML IV ONE (03:30)
[2021-03-03] MEDS: PIPERACILLIN-TAZOB 3.375GM 100 ML IV SCH ×3 (05:12→16:59)
[2021-03-03 05:40] LABS: Hematocrit 43.7 % (36.0-46.0); Hemoglobin 14.5 g/dL (12.2-16.2); Mean Corpuscular Hemoglobin 30.1 pg (28.0-32.0); Mean Corpuscular Hgb Conc. 33.3 g/dL (32.0-36.0); Mean Corpuscular Volume 90.5 fL (80.0-100.0); Red Blood Cells 4.83 10^6/uL (4.0-5.20); Red Cell Distribution Width 13.1 % (11.8-14.3); White Blood Cell 27.5 10^3/uL (4.4-10.8)
[2021-03-03 06:12] LABS: Calcium 8.1 mg/dL (8.5-10.1)
[2021-03-03 06:15] LABS: BUN/Creatinine Ratio 30.6
[2021-03-03 06:24] LABS: Basophils % (manual) 0 (0.0-2.0); Blast Cells 0; Eosinophils % (manual) 0 (0-7); Metamyelocytes % 0; Myelocytes % 0; Promyelocytes % 0; Reactive Lymphocytes 0
[2021-03-03] MEDS: ACCU-CHEK COMFORT CURVE STRIP VI SCH ×4 (06:30→22:59)
[2021-03-03] MEDS: InsuLIN REG 1unit/0.01ml Soln (100units/ml) SC SCH ×4 (06:30→23:04)
[2021-03-03] MEDS: INSULIN LANTUS (GLARGINE) 1 /0.01ml (100units/ml) SC SCH ×2 (06:32→23:01)
[2021-03-03] MEDS: APIXABAN 5 MG TAB PO SCH ×2 (08:00→18:41)
[2021-03-03 08:21] LABS: Potassium 2.5 mmol/L (3.5-5.1)
[2021-03-03 09:05] LABS: Band Neutrophils % (manual) 7; Lymphocytes % (manual) 2 (10.0-50.0); Monocytes % (manual) 2 (0-12)
[2021-03-03] MEDS: DOCUSATE SOD 100 MG CAP PO SCH ×2 (10:00→22:00)
[2021-03-03] MEDS: FAMOTIDINE 20 MG TAB PO SCH (10:00)
[2021-03-03] MEDS: CHOLECALCIFEROL (VITD3) 2,000 UNIT CAP/TAB PO SCH (10:00)
[2021-03-03] MEDS: POTASSIUM EFFERVESENT TAB 25 MEQ PO SCH (10:00)
[2021-03-03] MEDS: LACTULOSE 20Gm/30ML SOLN PO SCH ×2 (10:00→22:00)
[2021-03-03] MEDS: DEXTROSE (50%) 50ML SYRG IV PRN (11:55)
[2021-03-03] MEDS: POTASSIUM CHL 20MEQ/100ML 100 ML IV SCH ×3 (14:16→20:25)
[2021-03-03] MEDS: FUROSEMIDE 40 MG/4 ML VIAL IV SCH (18:20)
[2021-03-03] MEDS: SENNA 8.6 MG TAB PO SCH (22:00)
[2021-03-04] MEDS: PIPERACILLIN-TAZOB 3.375GM 100 ML IV SCH ×5 (00:06→23:42)
[2021-03-04 05:58] LABS: Basophils # (auto) 0 10 ^3/uL (0-0.2); Basophils % (auto) 0.1 % (0.0-2.0); Eosinophils # (auto) 0.1 10 ^3/uL (0-0.8); Eosinophils % (auto) 0.5 % (0.0-7.0); Hematocrit 40.9 % (36.0-46.0); Hemoglobin 13.5 g/dL (12.2-16.2); Lymphocytes # (auto) 0.7 10 ^3/uL (0.4-5.4); Lymphocytes % (auto) 3.9 % (10.0-50.0); Mean Corpuscular Hemoglobin 28.7 pg (28.0-32.0); Mean Corpuscular Volume 86.9 fL (80.0-100.0); Monocytes # (auto) 0.5 10 ^3/uL (0-1.3); Monocytes % (auto) 2.4 % (0.0-12.0); Neutrophils # (auto) 17.7 10 ^3/uL (1.6-8.6); Neutrophils % (auto) 93.1 % (37.0-80.0); Red Blood Cells 4.71 10^6/uL (4.0-5.20); Red Cell Distribution Width 12.5 % (11.8-14.3)
[2021-03-04] MEDS: FUROSEMIDE 40 MG/4 ML VIAL IV SCH ×2 (06:09→17:24)
[2021-03-04 06:22] LABS: Calcium 8.5 mg/dL (8.5-10.1)
[2021-03-04] MEDS: DEXTROSE (50%) 50ML SYRG IV PRN (06:27)
[2021-03-04 06:28] LABS: Potassium 2.6 mmol/L (3.5-5.1)
[2021-03-04] MEDS: ACCU-CHEK COMFORT CURVE STRIP VI SCH ×4 (06:37→22:00)
[2021-03-04] MEDS: INSULIN LANTUS (GLARGINE) 1 /0.01ml (100units/ml) SC SCH (06:37)
[2021-03-04] MEDS: InsuLIN REG 1unit/0.01ml Soln (100units/ml) SC SCH ×2 (06:38→11:30)
[2021-03-04] MEDS ORDERED: D5W 5% 1,000 ML IV SCH ×4 (07:30→20:00)
[2021-03-04] MEDS: POTASSIUM CHL 20MEQ/100ML 100 ML IV SCH ×4 (08:04→12:33)
[2021-03-04] MEDS: APIXABAN 5 MG TAB PO SCH ×2 (08:05→17:24)
[2021-03-04 08:33] LABS: BUN/Creatinine Ratio 29.4
[2021-03-04 09:00] VITALS: BP 138/66
[2021-03-04] MEDS: POTASSIUM EFFERVESENT TAB 25 MEQ PO SCH (10:00)
[2021-03-04] MEDS: DOCUSATE SOD 100 MG CAP PO SCH ×2 (10:00→22:00)
[2021-03-04] MEDS: LACTULOSE 20Gm/30ML SOLN PO SCH ×2 (10:00→22:00)
[2021-03-04] MEDS: AMIODARONE 450mg/250ml AE 250 ML IV SCH (10:23)
[2021-03-04] MEDS: FAMOTIDINE 20 MG TAB PO SCH (10:24)
[2021-03-04] MEDS: CHOLECALCIFEROL (VITD3) 2,000 UNIT CAP/TAB PO SCH (10:24)
[2021-03-04] MEDS ORDERED: AMIODARONE HCL 200 MG TAB PO ONE (11:15)
[2021-03-04] MEDS ORDERED: PPN PER PHARMACY 0 ML IV SCH (11:30)
[2021-03-04 12:00] LABS: Magnesium 2.4 mg/dL (1.6-2.6); Phosphorus 1.7 mg/dL (2.5-4.90)
[2021-03-04 12:04] LABS: Pre Albumin 8.8 mg/dL (20.0-40.0)
[2021-03-04 12:16] LABS: Albumin 1.7 g/dL (3.4-5.0); Bilirubin, Direct 0.5 mg/dL (0-0.2)
[2021-03-04 12:19] LABS: Bilirubin, Total 1.4 mg/dL (0.2-1.0); Total Protein 6.3 g/dL (6.4-8.2)
[2021-03-04 12:57] VITALS: BP 120/54
[2021-03-04] MEDS ORDERED: POTASSIUM PHOSPHATE 22 MEQ in SODIUM CHL 0.9% 100 ML IV ONE (16:00)
[2021-03-04 17:00] VITALS: BP 110/63
[2021-03-04] MEDS ORDERED: InsuLIN REG 1unit/0.01ml Soln (100units/ml) SC SCH ×2 (17:00→22:00)
[2021-03-04] MEDS: Glucerna Carbsteady SHAKE Vanilla 8oz PO SCH (18:00)
[2021-03-04] MEDS ORDERED: PPN PER PHARMACY IV NR ×8 (20:00)
[2021-03-04 21:00] VITALS: BP 120/56
[2021-03-04] MEDS: SENNA 8.6 MG TAB PO SCH (22:00)
[2021-03-04] MEDS ORDERED: APIXABAN 5 MG TAB PO SCH (22:00)
[2021-03-04] MEDS: AMIODARONE HCL 200 MG TAB PO SCH (23:38)
[2021-03-05] MEDS: INSULIN LANTUS (GLARGINE) 1 /0.01ml (100units/ml) SC SCH ×2 (00:43→06:01)
[2021-03-05] MEDS: ACCU-CHEK COMFORT CURVE STRIP VI SCH ×3 (00:44→11:14)
[2021-03-05] MEDS: InsuLIN REG 1unit/0.01ml Soln (100units/ml) SC SCH ×3 (00:45→11:51)
[2021-03-05 05:00] VITALS: BP 120/57
[2021-03-05] MEDS: PIPERACILLIN-TAZOB 3.375GM 100 ML IV SCH ×2 (05:41→11:14)
[2021-03-05] MEDS: FUROSEMIDE 40 MG/4 ML VIAL IV SCH (06:00)
[2021-03-05 06:05] LABS: Basophils # (auto) 0 10 ^3/uL (0-0.2); Basophils % (auto) 0.1 % (0.0-2.0); Eosinophils # (auto) 0.2 10 ^3/uL (0-0.8); Eosinophils % (auto) 1.1 % (0.0-7.0); Hematocrit 39.7 % (36.0-46.0); Hemoglobin 13.1 g/dL (12.2-16.2); Lymphocytes # (auto) 0.6 10 ^3/uL (0.4-5.4); Lymphocytes % (auto) 3.5 % (10.0-50.0); Mean Corpuscular Hemoglobin 29.5 pg (28.0-32.0); Mean Corpuscular Volume 89.2 fL (80.0-100.0); Monocytes # (auto) 0.3 10 ^3/uL (0-1.3); Neutrophils # (auto) 14.6 10 ^3/uL (1.6-8.6); Neutrophils % (auto) 93.3 % (37.0-80.0); Nucleated Red Blood Cells % 0.1 %; Red Blood Cells 4.45 10^6/uL (4.0-5.20); Red Cell Distribution Width 13.1 % (11.8-14.3); White Blood Cell 15.7 10^3/uL (4.4-10.8)
[2021-03-05 06:29] LABS: Potassium 3.1 mmol/L (3.5-5.1)
[2021-03-05 06:38] LABS: Albumin 1.5 g/dL (3.4-5.0); BUN/Creatinine Ratio 22.7; Bilirubin, Total 1.2 mg/dL (0.2-1.0); Calcium 7.9 mg/dL (8.5-10.1); Magnesium 2.4 mg/dL (1.6-2.6); Phosphorus 1.9 mg/dL (2.5-4.90)
[2021-03-05] MEDS: Glucerna Carbsteady SHAKE Vanilla 8oz PO SCH (07:51)
[2021-03-05] MEDS ORDERED: APIXABAN 2.5 MG TAB PO SCH (08:00)
[2021-03-05 09:00] VITALS: BP 132/65
[2021-03-05] MEDS: POTASSIUM EFFERVESENT TAB 25 MEQ PO SCH (09:04)
[2021-03-05] MEDS: FAMOTIDINE 20 MG TAB PO SCH (09:04)
[2021-03-05] MEDS: POTASSIUM CHL 20MEQ/100ML 100 ML IV SCH ×2 (09:29→11:14)
[2021-03-05] MEDS: LACTULOSE 20Gm/30ML SOLN PO SCH (09:29)
[2021-03-05] MEDS: DOCUSATE SOD 100 MG CAP PO SCH (09:29)
[2021-03-05] MEDS ORDERED: D5W 5% 1,000 ML IV SCH (09:30)
[2021-03-05] MEDS: CHOLECALCIFEROL (VITD3) 2,000 UNIT CAP/TAB PO SCH (09:30)
[2021-03-05] MEDS: AMIODARONE HCL 200 MG TAB PO SCH (09:30)
[2021-03-05 13:00] VITALS: BP 122/62
[2021-03-05] MEDS ORDERED: SODIUM PHOSP 20MEQ(15MMOL) IN NS 100 ML IV ONE (13:00)
[2021-03-05] MEDS ORDERED: PPN PER PHARMACY IV NR ×8 (20:00)
[2021-03-05] MEDS ORDERED: TPN PER PHARMACY IV NR ×8 (20:00)
== END 2021-03-05 16:15 | disposition hospice, home (50) | DRG 177 ==
LOC: ER 15:47 → TELE 20:54 → TELE-EAST 02-18 21:00 → TELE-E-ADS 02-23 23:51
PROVIDERS: ADMIT Nurse Practitioner; ATTEND Internal Medicine
DX: U07.1 COVID-19 (principal); J12.82 Pneumonia due to coronavirus disease 2019; G93.41 Metabolic encephalopathy; J96.01 Acute respiratory failure with hypoxia; N39.0 Urinary tract infection, site not specified; E44.0 Moderate protein-calorie malnutrition; E87.2 Acidosis; N17.9 Acute kidney failure, unspecified; E87.0 Hyperosmolality and hypernatremia; E87.1 Hypo-osmolality and hyponatremia; J98.11 Atelectasis; I47.1 Supraventricular tachycardia; E11.65 Type 2 diabetes mellitus with hyperglycemia; R62.7 Adult failure to thrive; E11.21 Type 2 diabetes mellitus with diabetic nephropathy; I10 Essential (primary) hypertension; E87.6 Hypokalemia; I48.0 Paroxysmal atrial fibrillation; K59.00 Constipation, unspecified; Z88.8 Allergy status to other drugs, medicaments and biological substances; Z68.20 Body mass index [BMI] 20.0-20.9, adult
CPT/HCPCS: 36415; 36600; 51702; 70450; 71045; 71275; 80048; 80053; 80076; 81001; 82010; 82040; 82728; 82805; 82962; 83036; 83615; 83735; 83880; 84100; 84478; 84484; 85007; 85025; 85027; 85379; 86141; 87426; 92507; 92610; 93005; 93306; 94640; 95819; 97110; 97116; 97163; G0378; J0153; J0696; J1100; J1815; J2543; J3480; J7060